=== PATIENT | male | born 1995 | race Caucasian/White ===

== ENCOUNTER 2024-10-18 10:58 | Emergency (ER) | payer MEDICAID, SELFPAY ==
--- NOTE | ~2024-10-18 | CT_ITS ---
CLINICAL INDICATION: Right upper quadrant pain COMPARISON: None. TECHNIQUE: Multiple contiguous axial images of the abdomen and pelvis were performed following the ad ministration of with 100 mL Omnipaque-350 intravenous contrast The dose-length product (DLP) was 514.31 mGy-cm. Automated exposure control and iterative reconstruction technique were employed. FINDINGS/OBSERVATIONS: Visualized lower thorax: The bilateral lung bases are clear. The heart is of normal size, without pericardial effusion. Small hiatal hernia is present. Liver: The liver enhances homogeneously and is not enlarged measuring 18 cm in longitudinal dimension. Gallbladder and biliary system: The gallbladder is only minimally distended, and otherwise unremarkable. Pancreas: The pancreas enhances homogeneously without ductal dilatation. Spleen: The spleen enhances homogeneously and is not enlarged measuring 8 cm in longitudinal dimension. Kidneys: The bilateral kidneys enhance symmetrically without hydronephrosis or renal calculi. Adrenal glands: Unremarkable. Gastrointestinal tract: End colostomy within the left lower quadrant with a Garzon's pouch in the pelvis. Appendix: The air-filled appendix is of normal caliber (axial series, images 117 through 136). Vasculature: Unremarkable. Lymph nodes: No pathologically enlarged or morphologically suspicious lymph nodes within the retroperitoneum or at the root of the mesentery. Pelvic structures: The bladder is distended, and otherwise unremarkable. The prostate gland is not enlarged. Body wall and musculoskeletal: Small fat-containing umbilical hernia. No significant degenerative disease within the lower thoracic or lumbosacral spine. IMPRESSION: No acute intra-abdominal pathology, as detailed above. Reviewed, dictated and finalized at location A. YSIS DIRECTOR
--- NOTE | ~2024-10-18 | XR_ITS ---
EXAMINATION: XR chest 1V portable Exam Date/Time: 10/18/2024 14:45 SHANK SKINNER HISTORY: RIGHT UPPER QUADRANT PAIN Comparison: None. RESULT: Lines, tubes, and devices: None. Lungs and pleura: Clear. Cardiomediastinal silhouette: Normal. Other: No acute osseous or upper abdominal finding. IMPRESSION: No acute cardiopulmonary process. Reviewed, dictated and finalized at location K. K SKINNER
[2024-10-18 11:06] VITALS: BP 130/96; PULSE 100; RESP 16; TEMP 36.6; O2SAT 100
--- NOTE | 2024-10-18 14:17 | ED_ITS ---
HPI - Abdominal Pain General Chief Complaint: Abdominal Pain Stated Complaint: abd pain Time Seen by Provider: 10/18/24 14:06 Source: patient Mode of arrival: ambulatory Related Data Allergies Allergy/AdvReac Type Severity Reaction Status Date / Time No Known Allergies Allergy Verified 10/18/24 10:59 Course Vital Signs Vital signs: Vital Signs Temperature 36.6 C 10/18/24 11:06 Pulse Rate 100 10/18/24 11:06 Respiratory Rate 16 10/18/24 11:06 Blood Pressure 130/96 H 10/18/24 11:06 Pulse Oximetry 100 10/18/24 11:06 Oxygen Delivery Room Air 10/18/24 11:06 Temperature 36.6 C 10/18/24 11:06 Pulse Rate 80 10/18/24 16:10 Respiratory Rate 16 10/18/24 16:10 Blood Pressure 134/88 10/18/24 16:10 Pulse Oximetry 98 10/18/24 16:10 Oxygen Delivery Room Air 10/18/24 11:06 MDM - Abdominal Pain MDM Narrative Medical decision making narrative: PATIENT CAME WITH RIGHT UPPER QUADRANT PAIN VITAL SIGNS ARE STABLE PHYSICAL EXAMINATION CONSISTENT WITH MILD DIFFUSE UPPER ABDOMINAL TENDERNESS, COLOSTOMY BAG IN PLACE DIFFERENTIAL DIAGNOSIS INCLUDE PANCREATITIS, DIVERTICULITIS, CONSTIPATION, CHOLECYSTITIS, APPENDICITIS BLOOD WORKUP TODAY INCLUDES CBC, CMP, LIPASE SHOWED NO ACUTE ABNORMALITIES URINALYSIS SHOWED NO ACUTE ABNORMALITIES PATIENT TESTED NEGATIVE FOR INFLUENZA, RSV AND COVID CT ABDOMEN AND PELVIS WITH IV CONTRAST SHOWED NO ACUTE ABNORMALITY TO EXPLAIN PATIENT CONDITION CHEST X-RAY SHOWED NO ACUTE ABNORMALITIES ABDOMINAL PAIN OF UNKNOWN ETIOLOGY IS MY CONCERN. DISCHARGED ON BENTYL AND TYLENOL NEEDED Differential Diagnosis Differential diagnosis: Likely other ( ABOVE) Lab Data Attestation: I reviewed the patient's lab results. 10/18/24 14:44 10/18/24 15:00 Labs: Lab Results 10/18/24 10/18/24 10/18/24 Range/Units 14:44 14:47 15:00 WBC 6.3 (4.5-10.0) K/mm3 RBC 5.33 (4.6-6.20) M/mm3 Hgb 15.6 (14.0-18.0) g/dL Hct 46.0 (42.0-52.0) % MCV 86.3 (80-100) fl MCH 29.3 (26-34) pg MCHC 33.9 (32-36) g/dl RDW 11.8 (11.5-14.5) % Plt Count 241 (150-375) k/mm3 MPV 9.1 (7.4-10.4) fl Immature Gran % (Auto) 0.2 (0-0.5) % Neut % (Auto) 53.7 (45.5-73.1) % Lymph % (Auto) 34.9 (18.3-44.2) % Bond % (Auto) 7.6 (2.6-8.5) % Eos % (Auto) 2.8 (0-4.4) % Baso % (Auto) 0.8 (0.2-1.2) % Lymph # (Auto) 2.21 (0.9-3.2) K/mm3 Bond # (Auto) 0.5 (0.1-0.6) K/mm3 Eos # (Auto) 0.2 (0-0.3) K/mm3 Baso # (Auto) 0.1 (0.0-0.1) K/mm3 Abs Immat Gran (auto) 0.01 (0.00-0.031) K/mm3 Absolute Neuts (auto) 3.4 (1.3-6.7) K/mm3 Absolute Nucleated RBC 0.000 (0.0-0.012) K/mm3 Nucleated RBC % 0.0 (0.0-0.2) % Sodium 140 (137-145) mmol/L Potassium 3.8 (3.4-5.0) mmol/L Chloride 99 (98-107) mmol/L Carbon Dioxide 30 (22-30) mmol/L Anion Gap 11 (4-12) mmol/L BUN 13 (9-20) mg/dL Creatinine 0.87 1.10 (0.7-1.3) mg/dL Estim Creat Clear Calc 123 98 ml/min Estimated GFR > 60 > 60 (59 - ) Glucose 90 (65-110) mg/dL Calcium 9.7 (8.4-10.2) mg/dL Total Bilirubin 0.9 (0.2-1.3) mg/dL AST 35 (17-59) U/L ALT 32 (6-50) U/L Alkaline Phosphatase 63 (38-126) U/L Total Protein 9.0 H (6.3-8.2) g/dL Albumin 5.2 H (3.5-5.1) g/dL Lipase 276 (23-300) U/L Urine Color (Yellow) Urine Appearance (Clear) Urine pH (5.0-9.0) Ur Specific [place] (1.001-1.035) Urine Protein (Negative) mg/dL Urine Glucose (UA) (Negative) mg/dL Urine Ketones (Negative) mg/dL Ur Blood (Man) (Negative) Urine Nitrate (Negative) Urine Bilirubin (Negative) Urine Urobilinogen (<2.0) mg/dL Leukocyte Esterase Rfl (Negative) JULIANNE/UL Influenza A (RT-PCR) Negative (Negative) Influenza B (RT-PCR) Negative (Negative) RSV (RT-PCR) Negative (Negative) SARS-CoV-2 RNA (RT-PCR) Negative (Negative) 10/18/24 Range/Units 15:40 WBC (4.5-10.0) K/mm3 RBC (4.6-6.20) M/mm3 Hgb (14.0-18.0) g/dL Hct (42.0-52.0) % MCV (80-100) fl MCH (26-34) pg MCHC (32-36) g/dl RDW (11.5-14.5) % Plt Count (150-375) k/mm3 MPV (7.4-10.4) fl Immature Gran % (Auto) (0-0.5) % Neut % (Auto) (45.5-73.1) % Lymph % (Auto) (18.3-44.2) % Bond % (Auto) (2.6-8.5) % Eos % (Auto) (0-4.4) % Baso % (Auto) (0.2-1.2) % Lymph # (Auto) (0.9-3.2) K/mm3 Bond # (Auto) (0.1-0.6) K/mm3 Eos # (Auto) (0-0.3) K/mm3 Baso # (Auto) (0.0-0.1) K/mm3 Abs Immat Gran (auto) (0.00-0.031) K/mm3 Absolute Neuts (auto) (1.3-6.7) K/mm3 Absolute Nucleated RBC (0.0-0.012) K/mm3 Nucleated RBC % (0.0-0.2) % Sodium (137-145) mmol/L Potassium (3.4-5.0) mmol/L Chloride (98-107) mmol/L Carbon Dioxide (22-30) mmol/L Anion Gap (4-12) mmol/L BUN (9-20) mg/dL Creatinine (0.7-1.3) mg/dL Estim Creat Clear Calc ml/min Estimated GFR (59 - ) Glucose (65-110) mg/dL Calcium (8.4-10.2) mg/dL Total Bilirubin (0.2-1.3) mg/dL AST (17-59) U/L ALT (6-50) U/L Alkaline Phosphatase (38-126) U/L Total Protein (6.3-8.2) g/dL Albumin (3.5-5.1) g/dL Lipase (23-300) U/L Urine Color Yellow (Yellow) Urine Appearance Clear (Clear) Urine pH 5.5 (5.0-9.0) Ur Specific [place] 1.039 H (1.001-1.035) Urine Protein Negative (Negative) mg/dL Urine Glucose (UA) Negative (Negative) mg/dL Urine Ketones Negative (Negative) mg/dL Ur Blood (Man) Negative (Negative) Urine Nitrate Negative (Negative) Urine Bilirubin Negative (Negative) Urine Urobilinogen 0.2 (<2.0) mg/dL Leukocyte Esterase Rfl Negative (Negative) JULIANNE/UL Influenza A (RT-PCR) (Negative) Influenza B (RT-PCR) (Negative) RSV (RT-PCR) (Negative) SARS-CoV-2 RNA (RT-PCR) (Negative) Imaging Data Radiologist's impression: ITS Impressions Chest X-Ray 10/18/24 15:00 IMPRESSION: No acute cardiopulmonary process. Abdomen/Pelvis CT 10/18/24 15:04 IMPRESSION: No acute intra-abdominal pathology, as detailed above. Critical Care Time Critical Care Time Critical Care Time: No Discharge Plan Discharge Clinical Impression: Abdominal pain Patient Disposition: Home, Self-Care Condition: Stable Instructions: Abdominal Pain (ED) Additional Instructions: RETURN IF SYMPTOMS ARE WORSENING , CALL YOUR FAMILY PHYSICIAN FOR APPOINTMENT, TAKE TYLENOL NEEDED FOR ACHES AND PAIN, CONTINUE HOME MEDICATIONS. Patient Language: [place] Prescriptions: New dicyclomine 20 mg tablet 20 mg PO QID Qty: 20 0RF Follow-up/Referrals: PHYSICIAN,FIXED CAPITAL CLERK [Non-Staff] - Elliot Mason MD [Physician] - 10/21/24
[2024-10-18] MEDS: SODIUM CHLORIDE 0.9% IV 1,000 ML 999 ML IV CONT (14:51)
[2024-10-18] MEDS: ONDANSETRON INJ 4 MG/2 ML VIAL IV PUSH (14:51)
[2024-10-18 14:53] LABS: Basophils Absolute Auto 0.1 K/mm3 (0.0-0.1); Basophils Percent Auto 0.8 % (0.2-1.2); Eosinophils Absolute Auto 0.2 K/mm3 (0-0.3); Eosinophils Percent Auto 2.8 % (0-4.4); Hemoglobin 15.6 g/dL (14.0-18.0); Immature Granulocyte Absolute 0.01 K/mm3 (0.00-0.031); Immature Granulocyte Percent A 0.2 % (0-0.5); Lymphocytes Absolute Auto 2.21 K/mm3 (0.9-3.2); Lymphocytes Percent Auto 34.9 % (18.3-44.2); Mean Corpuscular HGB Conc 33.9 g/dl (32-36); Mean Corpuscular Hemoglobin 29.3 pg (26-34); Mean Corpuscular Volume 86.3 fl (80-100); Mean Platelet Volume 9.1 fl (7.4-10.4); Monocytes Absolute Auto 0.5 K/mm3 (0.1-0.6); Monocytes Percent Auto 7.6 % (2.6-8.5); Neutrophils Absolute Auto 3.4 K/mm3 (1.3-6.7); Neutrophils Percent Auto 53.7 % (45.5-73.1); Platelet Count Result 241 k/mm3 (150-375); Red Blood Count 5.33 M/mm3 (4.6-6.20); Red Cell Distribution Width 11.8 % (11.5-14.5); White Blood Count 6.3 K/mm3 (4.5-10.0)
[2024-10-18] MEDS: HYDROmorphone HCL INJ (*CRX) 1 MG/ML SYR 0.5 MG IV PUSH (14:53)
[2024-10-18 15:01] LABS: Estimated CRCL calculation 98 ml/min; Estimated Glomerular Filt Rate > 60
[2024-10-18 15:06] LABS: Alanine Aminotransferase 32 U/L (6-50); Albumin Level 5.2 g/dL (3.5-5.1); Alkaline Phosphatase 63 U/L (38-126); Anion Gap 11 mmol/L (4-12); Aspartate Amino Transferase 35 U/L (17-59); Bilirubin,Total 0.9 mg/dL (0.2-1.3); Blood Urea Nitrogen 13 mg/dL (9-20); Calcium 9.7 mg/dL (8.4-10.2); Carbon Dioxide 30 mmol/L (22-30); Chloride 99 mmol/L (98-107); Estimated CRCL calculation 123 ml/min; Estimated Glomerular Filt Rate > 60; Glucose 90 mg/dL (65-110); Lipase 276 U/L (23-300); Potassium 3.8 mmol/L (3.4-5.0); Sodium 140 mmol/L (137-145)
[2024-10-18 15:30] LABS: Influenza A QL RT-PCR Negative (Negative); Influenza B QL RT-PCR Negative (Negative); RSV RNA, RT-PCR Negative (Negative); SARS-CoV-2 RNA PCR Negative (Negative)
[2024-10-18 15:49] LABS: Add Urine Microscopic? NO; Appearance Urine Clear (Clear); Bilirubin Urine Negative (Negative); Blood Urine Negative (Negative); Color Urine Yellow (Yellow); Glucose Urine UA Negative (Negative); Ketones Urine Negative (Negative); Leukocyte Esterase Ur Negative LEU/UL (Negative); Nitrate Urine Negative (Negative); Protein Urine Negative (Negative); Specific Grav Ur 1.039 (1.001-1.035); Urobilinogen Urine 0.2 mg/dL (<2.0); pH Urine 5.5 (5.0-9.0)
[2024-10-18 16:10] VITALS: BP 134/88; PULSE 80; RESP 16; O2SAT 98
--- OUTSIDE RECORDS SUMMARY | 2024-10-18 17:10 | XMS_ITS | Referral Summary ---
Author Organization [facility] madhavi Address [address] [place] [address] Care Team Providers Care Scientific Programmer Analyst Name Role Phone Carmina Loja MD Primary Care Provid er Encounters Date Type Department Care Team Description 10/01/2024 1:02 AM SLOPE TENDER - 10/01/2024 4:24 AM [facility] Emergency [facility] Emergency Department [address], [place] [id number] Andrés Wilde MD Abdominal pain (Primary Dx); Hyperkalemia Discharge Disposition: Discharge to home or self care from Last 3 Months Allergies Active Allergy Reactions Criticality Noted Date Comments Oseltamivir Other (See comments) Low 10/25/2023 jaundice Medications cetirizine (ZyrTEC) 10 mg tablet Take 1 tablet (10 mg total) by mouth daily as needed for allergies 30 tablet 10/20/19 24 Active spironolactone (ALDACTONE) 100 mg tablet Take 1 tablet (100 mg total) by mouth daily 30 tablet 11/12/19 24 Active Additional Information Patient not taking.Reported on 04/18/2024 thiamine (VITAMIN B1) 100 mg tablet Take 1 tablet (100 mg total) by mouth daily 30 tablet 11/12/19 24 Active folic acid (FOLVITE) 1 mg tablet Take 1 tablet (1 mg total) by mouth daily 30 tablet 11/12/19 24 Active Additional Information Patient not taking.Reported on 04/18/2024 cholestyramine-asp artame (QUESTRAN LIGHT) 4 gram powder in packet Take 1 packet by mouth air technician before breakfast 30 packet 11/12/19 24 Active lidocaine (ASPERCREME) 4 % adhesive patch,medicated Place 2 patches on the skin daily 30 patch 11/12/19 24 Active oxyCODONE (ROXICODONE) 5 mg immediate release tabletIndications: Pain Take 1 tablet (5 mg total) by mouth every 4 (four) hours as needed for pain 5 tablet 11/12/19 24 Active Additional Information Patient not taking.Reported on 01/20/2024 lactulose solution 10 gram/15mL Take 15 mL (10 g total) by mouth daily as needed (encephalopathy ) 450 mL 12/08/19 24 Active cholecalciferol (VITAMIN D-3) 50,000 unit capsuleIndications :Vitamin D Deficiency Take 1 capsule (50,000 Units total) by mouth once a week 4 capsule 1 12/18/19 24 Active gabapentin (NEURONTIN) 100 mg capsuleIndications :Neuropathic Pain Take 2 capsules (200 mg total) by mouth 3 (three) times a day 270 capsule 3 01/20/20 24 Active QUEtiapine (SEROquel) 25 mg tabletIndications: Depression Treatment Adjunct Take 6 tablets (150 mg total) by mouth nightly 90 tablet 3 01/20/20 24 Active furosemide (LASIX) 20 mg tabletIndications: Alcoholic hepatitis with ascites Take 1 tablet (20 mg total) by mouth daily 90 tablet 3 01/20/20 24 025 Active omeprazole (PriLOSEC) 40 mg capsuleIndications :Treatment of Non-Bleeding Gastric Disorder Take 1 capsule (40 mg total) by mouth daily 90 capsule 3 04/18/20 24 Active hydrOXYzine (ATARAX) 25 mg tabletIndications: Anxiety TAKE 1 TABLET BY MOUTH 4 TIMES DAILY NEEDED FOR ITCHING OR ANXIETY 90 tablet 05/10/20 24 Active ondansetron ODT (ZOFRAN-ODT) 4 mg disintegrating tablet Take 1 tablet (4 mg total) by mouth every 8 (eight) hours as needed for nausea or vomiting 20 tablet 10/01/19 25 Active Active Problems Problem Noted Date Diagnosed Date Episode of recurrent major depressive disorder 0 02/03/2024 Assessment & Plan (02/03/2024 9:34 PM CDT): - chronic, stable - continue Seroquel 150 mg nightly Anxiety 02/03/2024 Assessment & Plan (02/03/2024 9:35 PM CDT): - continue Seroquel - may take hydroxyzine p.r.n. Pain associated with wound 12/25/2023 Assessment & Plan (02/03/2024 9:33 PM CDT): - has been referred to pain management - continue gabapentin 200 mg t.i.d. Assessment & Plan (12/25/2023 8:25 PM CDT): - on methocarbamol 1000 mg every 6 hours p.r.n., reports he is almost out of oxycodone - and gabapentin taper dose up to 100 mg b.i.d. and 200 mg at bedtime - consider pain management referral, if necessary Anemia 12/04/2023 Assessment & Plan (12/08/2023 10:44 AM CDT): 12/03 Hgb 7.3-> 1u PRBC, post CBC pending 12/07 remains stable Hgb 9.3 Wound dehiscence, surgical, sequela 12/02/2023 Assessment & Plan (02/03/2024 9:32 PM CDT): - improving, continue [facility] and surgical - continues on wet-to-dry Vashe dressings Assessment & Plan (12/25/2023 8:22 PM CDT): - contacted wound care center at [facility]- appointment scheduled for Thursday12/21/2023 - continue wet-to-dry Vashe dressings until wound center evaluation - sutures from prior drain sites removed today - notify office if develops fevers, chills, foul odor or purulent drainage from wounds - repeat CT scan abd/pelvis scheduled 12/24/2023 - surgical follow-up on 01/20/2024 Assessment & Plan (12/03/2023 9:00 AM CDT): SEE SIGMOID DIVERTICULITIS AND ABDOMINAL WALL HEMATOMA for prior management 12/01 Notable bowel on inferior aspect of midline wound; LONA drain tubing remains visible from superior aspect. Plan for urgent OR today for abdominal closure 12/02 POD1 from abdominal closure; fascial sutures in place, WTD packing > CONSIDER RESOLVED, SEE SIGMOID DIVERTICULITIS for further management Intra-abdominal fluid collection 11/30/2023 Assessment & Plan (12/07/2023 12:02 PM CDT): 11/[address]: New small irregularly-shaped rim-enhancing collection anterior to the rectosigmoid pouch 11/29 consulted IR, undrainable, CTM, started ertapenem; Repeat CT prior to follow up appointment to re- evaluate 12/01 cont ertapenem while inpatient 12/02-12/04 WBC remains stable, continue Ertapenem 12/05 transitioned to Cipro/ Flagyl x10 days- until 12/15- prophylactic SBP S/P colostomy (CMS/HCC) 11/29/2023 Assessment & Plan (12/09/2023 1:09 PM CDT): Per Hepatology titrate Lactulose to 5-6 Bms daily/ 500-800 mL ostomy output per day 11/27 Ostomy output 875 mL, continue Lactulose 10g Q8 (titrate 500-800mL/day) 11/28 Ostomy output 1.9L/24h, decrease Lactulose to Q12 dosing 11/29 Ostomy output 1.2L/24h, continue Lactulose Q12 dosing, will readjust tomorrow if output remains greater than 1L 11/30 Ostomy 1025ml/24h, no changes in lactulose dosing 12/01 Ostomy 400cc/24h, no changes in lactulose 12/02 Thicker ostomy output; poor output documentation, adding pericolace, continue lactulose 12/03 ostomy output 50mL/24h thickened brown stool 12/04 ostomy output 25 mL/24h 12/05 ostomy output 230 mL/24h, brown output 12/06 ostomy output 485 mL/24h, brown stool 12/07 ostomy 250 mL liquid brown stool 12/08 ostomy 100mL thick brown output Severe protein-calorie malnutrition (CMS/HCC) 03 / Assessment & Plan (12/25/2023 8:16 PM CDT): - to consume 100 g protein daily to assist with wound healing - consider adding Martin supplementation Assessment & Plan (12/09/2023 1:10 PM CDT): 4 Albumin 2.2 Prealbumin 5, tolerating PO diet 12/04 Albumin 2.6 Prealbumin 4 Hyperbilirubinemia 11/05/2023 Assessment & Plan (11/17/2023 9:52 PM CDT): See alcoholic hepatitis with ascites Transaminitis 10/26/2023 Assessment & Plan (02/03/2024 9:31 PM CDT): - associated with alcoholic cirrhosis - with hyperbilirubinemia- 1.6, AST 80, ALT 20 - EGD on 11/11 demonstrated LA grade D esophagitis and a 2 cm sliding hernia - follow-up with Gastroenterology - avoid hepatotoxic medications - on Questran 4 g daily - lactulose ordered p.r.n., not currently taking - GI evaluation pending, repeat CMP Assessment & Plan (12/25/2023 8:13 PM CDT): - associated with alcoholic cirrhosis - with hyperbilirubinemia- 1.6, AST 80, ALT 20 - EGD on 11/11 demonstrated LA grade D esophagitis and a 2 cm sliding hernia - follow-up with Gastroenterology - avoid hepatotoxic medications - on Questran 4 g daily - not currently taking lactulose Alcoholic hepatitis with ascites 10/25/2023 Assessment & Plan (02/03/2024 9:30 PM CDT): - patient has continued to from alcohol - referral to pending Assessment & Plan (12/25/2023 8:18 PM CDT): - plan as above - referral to GI - discussed referral to warm handoff program, however, patient states he has not had an alcoholic beverage since October 21 Assessment & Plan (12/09/2023 1:05 PM CDT): Reports drinking 10 shots/day regularly for the last 5 years or so. EGD on 11/11 demonstrated LA grade D esophagitis and a 2 cm sliding hernia. MELD 30. Not transplant candidate due to current alcohol use. Daily CMP, coags, transfuse products as needed for INR goal. KALEN as indicated GI hepatology following, recommends: - 2L free water restriction - holding off on steroids for now given recent diverticulitis - paracentesis for comfort, send fluid for cell count - in setting of perforation, ok to hold PO meds furosemide 40mg daily and spirolactone 100mg daily - albumin 25g Q8H to compensate for fluid losses from wound vac Will re-engage hepatology for possible TIPS following resolution of abdominal pathology - hepatology c/s: send drain fluid for cell count, not a txp candidate - 11/23: Tbili 7.0 (8.9), hepatology c/s: hold off on diuretics and steroids - 11/24: drain Cx negative, Tbili 5.5 - 11/25: LONA #2 removed -11/26 LONA #1 160 mL output/ 24 hr- ascites, change emptying frequency to Q8, re engaged Hepatology for possible TIPS consideration in the setting of improvement overall, started Lasix and Spironolactone -11/27 LONA #1 with 30 mL output/ 24 hrs - ascites, emptying frequency Q12, started daily PO Potassium -11/28 LONA#1 with 545 mL output/24 hrs- ascites, reinforced emptying schedule with nursing, continue schedule Potassium repletion -11/29 LONA #1with 360 mL output/ 24 hrs- ascites, sent fluid from LONA drain to rule out SBP, Ertapenem started, if ascites is negative for bacteria will transition to Augmentin x14 days at discharge, continue scheduled Lasix, Spironolactone and Potassium -11/30 LONA drain cx NGTD, continue ertapenem while inpatient. Continue lasix, spironolactone, K supplements, lactulose. To discuss liver transplant with Hepatology team -12/01 cont current regime; per hepatology can consider weaning lactulose pending ostomy output --- Approx 650cc ascites evacuated in OR, albumin x1 given post-op -12/02 LONA drains x2 total output 775cc/24h, albumin x1 ordered. Continue Q6H emptying schedule. Continue lasix, spironolactone, K supplement, lactulose -12/04 LONA drains x2 total output 300mL/24h, continue Lasix and Spironolactone,change LONA emptying conference, LONA#2- Q8, LONA#3- keep clamped -12/05 clamp both Jps, continue Lasix and Spironolactone, addition Lasix 20mg IV provided -12/06 removed LONA#3, continue Lasix and Spironolactone, Lona#2 200 mL/24h, but will likely remove this drain tomorrow -12/07 LONA#2 emptied overnight, continue Lasix and Spironolactone, serum K remains stable on schedule BID supplements, likely DC LONA#2 tomorrow -12/08 midline wound no extra drainage, LONA #2 removed, stitch and derma pitts applied Needs Hepatitis B vaccine prior to discharge Acute esophagitis 05/21/2021 Assessment & Plan (12/01/2023 12:59 PM CDT): -11/11 - EGD: LA Grade D esophagitis -Recs for BID PPI -Repeat EGD in 12 weeks -11/30 PPI switched to PO formulation Hiatal hernia 05/21/2021 Acute esophageal obstruction 05/19/2021 Resolved Problems Problem Noted Date Diagnosed Date Resolved Date 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 12/06/2023 12/25/2023 Assessment & Plan (12/06/2023 10:34 AM CDT): 11/28 + stool Sinus tachycardia 12/04/2023 12/25/2023 Assessment & Plan (12/09/2023 1:11 PM CDT): 12/03 noted tachycardia overnight, negative 3L: UOP 3.2L, LONA drains 300 mL/24 h total, provided 1L LR bolus, LED negative Hgb 7.3-> 1u PRBC: See Anemia, placed on Telemetry CTM 12/04 HR 110s overnight, UOP 1.9L, LONA drain output total 300mL/24h CTM 12/05 HR 90-110s 12/06 HR 100-110s 12/07 HR 90-100s 12/08 HR 106-113 Abdominal wall hematoma 11/30/2023 05/0 10/2023 Assessment & Plan (12/03/2023 9:00 AM CDT): 11/27-11/28 patient vomited and noted a gush from the upper aspect of his incision, CT shows abdominal wall hematoma, CTM 11/29 removed rebekah from the upper aspect of the incision noted fascial sutures at the base of the incision, wet to dry dressing changes to the site, now emptying LONA Q6 to reduce tension on the incision, photo loaded in EPIC 11/30 adaptic added to base of wound; dressing changes Q8H, abdominal binder ordered and patient educated to brace when coughing/sneezing SEE PERIOPERATIVE DEHISCENCE OF ABDOMINAL WOUND WITH EVISCERATION > CONSIDER RESOLVED Diuretic-induced hypokalemia 11/28/2023 12/25/2023 Assessment & Plan (12/08/2023 10:36 AM CDT): 11/27 started PO Lasix and Spironolactone yesterday, UOP 1.7L, noted serum K 3.3, provided 40 mEQ Potassium IV, and daily PO Potassium 40 mEQ 11/28 K 3.6, continue scheduled PO Potassium 11/29 K 3.6, continue PO Potassium 11/30 K 3.7, continue lasix and scheduled K supplement 40 mEq daily 12/01 K 3.4, add 2nd PM dose of K supplement 12/03 K 3.6, added 2nd PM dose of Potassium 40 mEq 12/04 K 2.9, added 80 mEq Potassium IV for repletion, changed Potassium 40 mEq BID (requesting liquid) 12/05 discussed to improtance of taking potassium supplements in the setting of scheduled and PRN Diurectics, K 4.1, continue scheduled PO 40 mEq BID 12/06 K 3.7, continue scheduled PO BID, CTM 12/07 K stable 3.9, continue current regimen Discharge planning issues 11/27/2023 Assessment & Plan (12/09/2023 1:09 PM CDT): 11/26 transferred from SICU to the floor 11/27 started diuretics and Electrolyte repletion, LONA drain Q12 emptying, ostomy teaching 11/28 CT A/P 11/29 started IV Ertapenem, send ascites for culture 11/30 midline hematoma s/p staple removal, on watch for evisceration 12/01 urgent OR today for abdominal closure 12/03 DROP HAMMER SET UP OPERATOR for pain, will transition to PO when tolerating diet 12/04-12/06 clamp trials/schedule with Jps and local wound care 12/08 last LONA removed, plan for discharge tomorrow if midline wound remains intact Sigmoid diverticulitis 11/05/202312/24 Assessment & Plan (12/09/2023 1:11 PM CDT): First diagnosed at end of September, was uncomplicated then so treated with abx (Augmentin). Admitted to [facility] 10/24-11/01 for hepatitis with ascites. CT scan 10/25 noted microperforation.Treated with IV zoysn. Re-presented to [place] ED on 11/04 11/04: admitted to [facility] primary 11/11: underwent EGD, after which developed worsening abd pain with KUB showing free air. Abx restarted 11/12: ACCS consulted. NPO, IV Abx 11/15: CT with IV contrast showing worsening ascites and peritonitis c/f sigmoid perforation. Worsening encephalopathy 11/15-: OR (Kopar) sigmoid colectomy, retroperitoneal bleeding packed, discontinuity, Abthera. Plan to RTOR in 24-48h 11/17: OR (Kopar) extended L hemicolectomy, rectosigmoid resection, repacked, Abthera. 4U FFP, 6U pRBC during case. 11/19: OR ([facility]) Re exploratory laparotomy, creation of end transverse colostomy, complex abdominal closure (incision measuring 32 cm) 11/20: Keep NGT to LIS. LONA to self suction empty q3h only. Replete output. Keep erta for at least 4 more days and monitor WBC. Okay to extubate from ACCS perspective. Please re-engage GI hepatology 11/21: TPN, Trickle tube feeds until ROBF; empty LONA Q4Hr 11/22: lactulose started, not a candidate for an epidural by PM d/t INR 1.2, drains emptying q4h 11/23: colostomy output 875 (250), TFs increasing from trickle to goal rate, WBC 20.4 (26.1) 11/24: ok to TTOU, d/c TPN, continue TFs 11/25: CHUGG out to OU done, drains out 11/26 transferred to the floor, tolerating a PO diet Regular/ regular, removed NGT for supplemental feeds, Colostomy output 775 mL, empty LONA Q8, removed LONA #2 11/27 tolerating a PO diet, Colostomy with 875 mL brown stool, LONA #1 with ascites output 11/28 complains of nausea and vomited after medications, then had a gush of fluid from the midline, on exam noted pain on tenderness to the right lateral aspect of the midline incision, CT ordered, LONA remains ascites fluid emptying Q12 11/29 CT completed shows:small irregularly-shaped rim-enhancing collection anterior to the rectosigmoid pouch, a new right anterior abdominal wall hematoma.Trace pericholecystic, peripancreatic fluid and body wall edema is likely related to volume status. Reached out to IR to drain the fluid collection but is undrainable, started Ertapenem, will send fluid from LONA to evaluate for SBP- if negative will discharge on 2 weeks of Augmentin and follow up with a CT A/P. 11/30 Cont to tolerating PO diet, +stoma output. Adaptic added to base of wound, currently no concern for evisceration. NPO at midnight for repeat midline check tomorrow AM. 12/01 Urgent OR today. Previously tolerating PO, +stoma output 12/01 OR ([facility]fer) abdominal closure; ALMA, 2nd LONA drain placed (LLQ in pelvis), skin open 12/02 POD1 from abdominal closure; fascial sutures in place, pain uncontrolled, dPCA ordered. Continue WTD packing to midline. LONA drains x2 (removed previous LONA #1, now LONA#2&3)to Q6H emptying. Tolerating regular diet, +stoma output, thicker stool in appliance adding pericolace 12/03 POD2, midline incision pink with noted fascial sutures, photo loaded in EPIC, + stoma output, LONA x2- Q8 emptying, tolerating PO diet 12/04 POD3, midline dressing changed, fascial sutures int place, wound bed beefy red, photo loaded in EPIC, + stoma output, continue to empty LONA#2- Q8, LONA#3- keep clamped 12/05 POD4, midline incision open with red wound bed and fascial sutures visible, transitioned to PO Cipro/ Flagyl x14 days for total until 12/15, clamp both LONA drains 12/06 POD5, midline incision with red wound bed, fascial sutures present, some tannish drainage from the lower aspect of the incision, continue to clamp LONA#2, removed LONA #3, ostomy present with 485 mL brown stool 12/07 POD6, midline incision clean with fascial sutures present, continue local wound care, LONA #3- removed yesterday, JPx2 serous output- CLAMPED, continue abx until 12/15 (10 days total), ostomy 250 mL liquid brown stool 12/08 POD7 midline incision with fascial sutures noted, dressing moist, LONA #2 removed SEE HEMATOMA AND INTRA ABDOMINAL FLUID COLLECTION AND PERIOPERATIVE DEHISCENCE OF ABDOMINAL WOUND WITH EVISCERATION Cultures 11/05 RVP negative 11/05 BCx negative 09/25 11/13 RVP negative 11/16 OR peritoneal fluid: negative 11/29 Ascites (LONA drain) NGTD Abx Augmentin 10/19-10/24, 11/01 Zosyn 10/24-11/01, 11/12- 11/16 Micafungin: 11/16-11/17 Ertapenem: 11/12, 11/16-11/23, 11/29- Discharge on total 10 days of abx- Ciprofloxacin and Flagyl (12/05-12/15) Pathology 11/16 A. Large intestine, sigmoid colon, resection - Segment of colon with mild diverticulitis and associated pericolonic abscess and fibrosis - Serositis and serosal adhesions - Margins viable 11/17 A. Distal transverse and descending colon and omentum, extended left hemicolectomy and omentectomy: - Necrotizing serositis involving segment of colon, colonic mesentery, and omentum. B. Colon, rectosigmoid, resection: - Perforated diverticulitis with abscess, necrosis, foreign body giant cell reactions, acute and chronic inflammation, and fibrosis involving a segment of colon. 11/19 Colon, colostomy, resection: - Segment of colon with ischemic-type injury, necrosis, hemorrhage and serositis. - Ischemic-type injury involving the stapled end. Ischemic necrosis of small bowel (CMS/HCC) 11/05/2023 12/25/2023 Immunizations Immunization Administration Dates Next Due DTaP 03/16/2002, 9,1997,10/10,1997 DTaP, Unspecified 03/16/2002, 9,1997,10/10,1997 Hep B / HiB 03/16/1998,1997,1997 Hep B Vaccine 12/10/2023,(Deferred: Other - new order given),12/10/2023(Deferred: Other),12/01/2023(Deferred: Not available from balloon artist),11/12/2023 Hep B, Adolescent or Pediatric 03/16/1998,1996,1997 Hep B, Unspecified 03/16/1998,1997, 997 HiB 05/03/1999, 9,1997,12/07,1997,1997,1997 ,1997 Hib (HbOC) 05/03/1999, 8,1997,07/21 IPV 03/16/2002, 8,1997,07/21 Influenza, Unspecified 06/01/2023(Deferred: Leigh ent Refused) MMR 03/16/2002,06/01/1998 Meningococcal ACWY, Unspecified 02/01/2009 Meningococcal MCV4P (Menactra) 05/25/2015,2008 Meningococcal Polysaccharide (Menomune) 02/01/2009 Td, adsorbed 05/28/2021 Tdap 02/01/2009 Varicella 05/25/2015,05/03/1999 Social History Tobacco Use Types Packs/Day Years Used Date Smoking Tobacco: Former Cigarettes Smokeless Tobacco: Never Tobacco Cessation:Counseling Given: Not Answered Alcohol Use Standard Drinks/Week Comments Not Currently 0 (1 standard drink = 0.6 oz pure alcohol) pt did drink daily until october 23 [facility] Utilities Answer Date Recorded In the past 12 months has th e electric, gas, oil, or water company threatened to shut off services in your home? No 10/27/2023 Social Connection and Isolat ion Panel [NHANES] Answer Date Recorded In a typical week, how many times do you talk on the phone with family, friends, or neighbors? More than three times a week 11/06/2023 How often do you get togethe r with friends or relatives? More than three times a week 11/06/2023 How often do you attend chur ch or uatsdin services? Never 11/06/2023 Do you belong to any clubs o r organizations such as voodoo groups, unions, fraternal or athletic groups, or school groups? No 11/06/2023 How often do you attend meet ings of the clubs or organizations you belong to? Never 11/06/2023 Are you , , di vorced, , never , or living with a partner? Never 11/06/2023 AUDIT-C Answer Date Recorded Q1: How often do you have a drink containing alcohol? 4 or more times a week 11/16/2023 Q2: How many drinks containi ng alcohol do you have on a typical day when you are drinking? 10 or more Q3: How often do you have si x or more drinks on one occasion? Never 11/16/2023 Overall Financial Resource Strain (CARDIA) Answe r Date Recorded How hard is it for you to pa y for the very basics like food, housing, medical care, and heating? Not hard at all 11/06/2023 PHQ-2 Answer Date Recorded PHQ-2 Total Score (If total score is 3 or more points, staff should administer the PHQ-9) 1 11/06/2023 Hunger Vital Sign Answer Date Recorded Within the past 12 months, y ou worried that your food would run out before you got the money to buy more. Never true 11/06/19 24 Within the past 12 months, t he food you bought just didn't last and you didn't have money to get more. Never true 11/06/2023 PRAPARE - Transportation Answer Date Re corded In the past 12 months, has l ack of transportation kept you from medical appointments or from getting medications? No 10/22 In the past 12 months, has l ack of transportation kept you from meetings, work, or from getting things needed for daily living? No 11/06/2023 Housing Stability Vital Sign Answer Egorge e Recorded In the last 12 months, was t here a time when you were not able to pay the mortgage or rent on time? No 11/06/2023 In the last 12 months, how many places have you lived? 1 11/06/2023 In the last 12 months, was t here a time when you did not have a steady place to sleep or slept in a long-term (including now)? No 11/06/2023 Personal Safety Answer Date Recorded Have you ever been in or are you currently in a harmful physical or emotional relationship or is someone making you feel afraid or unsafe? Denies 09/30/2024 Sex and Gender Information Value Date Recorded Sex Assigned at Not on file Legal Sex Male 5:33 PM SLOPE TENDER Gender Identity Not on file Sexual Orientation Not on file Last Filed Vital Signs Vital Sign Reading Time Taken Comments Blood Pressure 129/84 09/30/2024 7:05 PM SLOPE TENDER Pulse 85 09/30/2024 7:05 PM SLOPE TENDER Temperature 36.2 C (97.2 F) 09/30/2024 7:04 PM SLOPE TENDER Respiratory Rate 18 09/30/2024 7:04 PM SLOPE TENDER Oxygen Saturation 100% 09/30/2024 7:05 PM SLOPE TENDER Inhaled Oxygen Concentration - - Weight 83.9 kg (185 lb) 09/30/2024 7:04 PM SLOPE TENDER Height 182.9 cm (6') 09/30/2024 7:04 PM SLOPE TENDER Body Mass Index 25.09 09/30/2024 7:04 PM SLOPE TENDER Plan of Treatment Not on file Procedures Procedure Name Priority Date/Time Associated Diagnosis Comments CT ABDOMEN PELVIS W CONTRAST ED 10/01/2024 1:34 AM SLOPE TENDER URINALYSIS AND REFLEX TO MICROSCOPIC AND CULTURE STAT 09/30/2024 9:06 PM SLOPE TENDER EGFR STAT 09/30/2024 8:26 PM SLOPE TENDER DIFFERENTIAL AUTO STAT 09/30/2024 8:2 6 PM SLOPE TENDER LIPASE STAT 09/30/2024 8:26 PM SLOPE TENDER COMPREHENSIVE METABOLIC PANEL STAT 09/30/2024 8:26 PM SLOPE TENDER CBC WITH AUTO DIFFERENTIAL STAT 09/30/2024 8:26 PM SLOPE TENDER HEPATITIS C RNA, QUANTITATIVE, PCR Routine 11/05/2023 8:57 PM CDT from Last 3 Months or Most Recently Relevant to Health Maintenance Results * CT Abdomen Pelvis W Contrast (10/01/2024 1:34 AM SLOPE TENDER) Anatomical Region Laterality Modality Body N/A Computed Tomogra phy 10/01/2024 1:37 AM SLOPE TENDER Narrative 10/01/2024 1:42 AM SLOPE TENDER EXAM DESCRIPTION: CT ABDOMEN PELVIS W CONTRAST REASON FOR STUDY: Abdominal pain, acute, nonlocalized, abd pain General abdominal pain since stopping a medication approximately 12 days ago. TECHNIQUE: CT scan of the abdomen and pelvis performed with intravenous and without oral contrast using helical scanning technique with dynamic intravenous contrast injection. Reconstructed coronal and sagittal MPR images reviewed. All images stored on PACS. Automated exposure control was used as a dose optimization technique for this examination. CONTRAST TYPE/DOSE: 100mL of IOVERSOL 350 MG IODINE/ML INTRAVENOUS SYRINGE injected via intravenous COMPARISON: CT of the abdomen and pelvis of December 24, 2023. FINDINGS: LOWER CHEST: The lung bases are clear. LIVER: The liver is normal in attenuation without focal lesion. GALLBLADDER: No stones identified. Normal wall. No evidence of pericholecystic fluid. BILE DUCTS: No intrahepatic or extrahepatic ductal dilatation. PANCREAS: Normal. SPLEEN: Normal size. No focal lesions. ADRENALS: Normal. KIDNEYS/URINARY TRACT: No identified significant cystic or solid masses. No visualized stones. No hydronephrosis or hydroureter. Urinary bladder is unremarkable. VASCULATURE: No acute abnormality seen. No abdominal aortic aneurysm. GI: The stomach appears normal. There is no significant small bowel dilation or visible thickening. 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 Remaining colon appears unremarkable. The appendix is normal. PERITONEUM/MESENTERY: No ascites or free air. There are multiple tiny fat containing supraumbilical ventral hernias, unchanged. LYMPH NODES: There are no enlarged lymph nodes seen by CT size criteria. REPRODUCTIVE: The prostate and seminal vesicles are unremarkable. MUSCULOSKELETAL: No significant abnormality. OTHER: No other abnormality. IMPRESSION: No acute finding in the abdomen or pelvis. 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 Multiple tiny fat containing supraumbilical ventral hernias, unchanged. THIS IS AN ELECTRONICALLY VERIFIED FINAL REPORT 10/01/2024 1:42 AM - Electronically signed by Pilar Jimenez M.D. SN: Report ID: [id number] Reading Location: [id number] Procedure Note Pilar Jimenez MD - 10/01/2024 EXAM DESCRIPTION: CT ABDOMEN PELVIS W CONTRAST REASON FOR STUDY: Abdominal pain, acute, nonlocalized, abd pain General abdominal pain since stopping a medication approximately 12 daysago. TECHNIQUE: CT scan of the abdomen and pelvis performed with intravenousand without oral contrast using helical scanning technique with dynamic intravenous contrast injection. Reconstructed coronal and sagittal MPRimages reviewed. All images stored on PACS. Automated exposure control was usedas a dose optimization technique for this examination. CONTRAST TYPE/DOSE: 100mL of IOVERSOL 350 MG IODINE/ML INTRAVENOUSSYRINGE injected via intravenous COMPARISON: CT of the abdomen and pelvis of December 24, 2023. FINDINGS: LOWER CHEST: The lung bases are clear. LIVER: The liver is normal in attenuation without focal lesion. GALLBLADDER: No stones identified. Normal wall. No evidence of pericholecystic fluid. BILE DUCTS: No intrahepatic or extrahepatic ductal dilatation. PANCREAS: Normal. SPLEEN: Normal size. No focal lesions. ADRENALS: Normal. KIDNEYS/URINARY TRACT: No identified significant cystic or solid masses.No visualized stones. No hydronephrosis or hydroureter. Urinary bladder is unremarkable. VASCULATURE: No acute abnormality seen. No abdominal aortic aneurysm. GI: The stomach appears normal. There is no significant small bowel dilation or visible thickening. 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 Remaining colon appears unremarkable. The appendix is normal. PERITONEUM/MESENTERY: No ascites or free air. There are multiple tinyfat containing supraumbilical ventral hernias, unchanged. LYMPH NODES: There are no enlarged lymph nodes seen by CT size criteria. REPRODUCTIVE: The prostate and seminal vesicles are unremarkable. MUSCULOSKELETAL: No significant abnormality. OTHER: No other abnormality. IMPRESSION: No acute finding in the abdomen or pelvis. 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 Multiple tiny fat containing supraumbilical ventral hernias, unchanged. THIS IS AN ELECTRONICALLY VERIFIED FINAL REPORT 10/01/2024 1:42 AM - Electronically signed by Pilar Jimenez M.D. SN: SN Report ID: [id number] Reading Location: [place] [address] us Andrés Wilde MD IMG CT PROCEDURES Final Resul t * Urinalysis reflex to microscopic and culture Urine (09/30/2024 9:06 PM SLOPE TENDER) Color, ur Straw Yellow Clarity, ur Clear Clear [facility] ([place]) Specific gravity, ur 1.006 1.003 - 1.030 [facility] ([place]) pH, urine 5.5 [facility] ([place]) Comment: Interpretive Data U rine pH is affected by diet, medications, systemic acid-base disturbances, and renal tubular function. pH may affect urinary stone formation. For example, urine pH below 6.0 may help reduce the tendency for calcium phosphate stones and pH greater than 6.0 may reduce the tendency for uric acid stone formation. Source: [facility] Current Interpretive Data was last revised on 2017 Protein, ur ql Negative Negative [facility] ([place]) Glucose, ur ql Negative Negative [facility] ([place]) Ketones, ur Negative Negative [facility] ([place]) Bilirubin, ur Negative Negative [facility] ([place]) Blood, ur Negative Negative [facility] ([place]) Urobilinogen, ur <2.0 <2.0 mg/dL [facility] ([place]) Nitrite, ur Negative Negative [facility] ([place]) Leukocyte esterase, ur Negative Negative [facility] ([place]) UA reflex comment Reflex conditions for microscopic UA and culture not met. [facility] ([place]) Urine 09/30/2024 9:06 PM SLOPE TENDER 09/30/2024 9:10 PM SLOPE TENDER us Andrés Wilde MD LAB MICROBIOLOGY - GENERAL OR DERABLES Final Result Performing Organization Address City/[facility]/ZIP Co de Phone Number [facility]INO [facility] ([place]YS[place]) 1 [facility] [place] [address] * eGFR (09/30/2024 8:26 PM SLOPE TENDER) Pathologist [facility] [place] eGFR >90 >=60 mL/min/1. 73 m2 Comment: Interpretive Data Reference Interval Normal >/= 90 mL/min/1.73m2 Mildly decreased* 60 - 89 mL/min/1.73m2 Mildly to moderately decreased 45 - 59 mL/min/1.73m2 Moderately to severely decreased 30 - 44 mL/min/1.73m2 Severely decreased 15 - 29 mL/min/1.73m2 Kidney Failure < 15 mL/min/1.73m2 *Relative to young adult level Estimated glomerular filtration rate is determined by the 2020 CKD-EPI equation recommended by the National Kidney [employer] (A Unifying Approach to GFR Estimation: Recommendations of the NKF-ASK Task Force on Reassessing the Inclusion of Race in Diagnosing Kidney Disease, JASN 2020). The CKD-EPI equation should not be used for patients with unstable renal function and has not been validated in children and those over 70. Current interpretive data was last reviewed 2021. Blood 09/30/2024 8:26 PM SLOPE TENDER 09/30/2024 8:28 PM SLOPE TENDER us Andrés Wilde MD LAB BLOOD ORDERABLES Final Re sult [facility] ([place]) 1 [facility] Department [place] [address] * (ABNORMAL) Differential, auto (09/30/2024 8:26 PM SLOPE TENDER) Neutrophil abs 5.0 1.5 - 6.5 K/cumm Imm gran abs 0.0 0.0 - 0.1 K/cumm [facility] ([place]) Lymphocyte abs 3.1 0.8 - 3.3 K/cumm [facility] ([place]) Monocyte abs 0.9(H) 0.2 - 0.8 K/cumm [facility] ([place]) Eosinophil abs 0.3 0.0 - 0.5 K/cumm [facility] ([place]) Basophil abs 0.1 0.0 - 0.1 K/cumm [facility] ([place]) Neutrophil pct 53.5 % [facility] ([place]) Comment: Interpretive Data Percent cell count reference ranges are not reported, since discordance with absolute values may lead to misinterpretation of CBC data. Current Interpretive Data was last revised on 2017. Imm gran pct 0.2 % [facility] ([place]) Comment: Interpretive Data Percent cell count reference ranges are not reported, since discordance with absolute values may lead to misinterpretation of CBC data. Current Interpretive Data was last revised on 2017. Lymphocyte pct 32.8 % [facility] ([place]) Comment: Interpretive Data Percent cell count reference ranges are not reported, since discordance with absolute values may lead to misinterpretation of CBC data. Current Interpretive Data was last revised on 2017. Monocyte pct 9.7 % [facility] ([place]) Comment: Interpretive Data Percent cell count reference ranges are not reported, since discordance with absolute values may lead to misinterpretation of CBC data. Current Interpretive Data was last revised on 2017. Eosinophil pct 3.1 % [facility] ([place]) Comment: Interpretive Data Percent cell count reference ranges are not reported, since discordance with absolute values may lead to misinterpretation of CBC data. Current Interpretive Data was last revised on 2017. Basophil pct 0.7 % [facility] ([place]) Comment: Interpretive Data Percent cell count reference ranges are not reported, since discordance with absolute values may lead to misinterpretation of CBC data. Current Interpretive Data was last revised on 2017. Blood 09/30/2024 8:2 6 PM SLOPE TENDER 09/30/2024 8:28 PM SLOPE TENDER us Andrés Wilde MD LAB BLOOD ORDERABLES Final Re sult [facility] ([place]) 1 [facility] Department [place] [address] * CBC with auto differential (09/30/2024 8:26 PM SLOPE TENDER) WBC 9.4 3.8 - 9.9 K/cumm Hgb 16.1 13.0 - 17.5 g/dL [facility] ([place]) Hct 47.6 38.9 - 50.3 % [facility] ([place]) Plt 296 150 - 400 K/cumm [facility] ([place]) MPV 9.8 9.1 - 12.3 fL [facility] ([place]) RBC 5.47 4.30 - 5.80 M/cumm [facility] ([place]) MCV 87.0 81.3 - 96.4 fL [facility] ([place]) MCH 29.4 27.1 - 33.3 pg [facility] ([place]) MCHC 33.8 32.3 - 35.7 g/dL [facility] ([place]) RDW CV 11.9 11.1 - 14.9 % [facility] ([place]) RDW SD 38.2 35.7 - 48.1 fL [facility] ([place]) NRBC abs 0.00 0.00 - 0.01 K/cumm [facility] ([place]) Blood (Blood, Venous) 09/30/2024 8:26 PM SLOPE TENDER 09/30/2024 8:28 PM SLOPE TENDER us Andrés Wilde MD LAB BLOOD ORDERABLES Final Re sult [facility]INO [facility] ([place]) 1 [facility] [place] [address] * Lipase (09/30/2024 8:26 PM SLOPE TENDER) Lipase 72 10 - 99 Units/L Blood (Blood, Venous) 09/30/2024 8:26 PM SLOPE TENDER 09/30/2024 8:28 PM SLOPE TENDER us Andrés Wilde MD LAB BLOOD ORDERABLES Final Re sult [facility]INO [facility] ([place]) 1 [facility] Department [place] [address] * (ABNORMAL) Comprehensive metabolic panel (09/30/2024 8:26 PM SLOPE TENDER) Sodium 133(L) 135 - 145 mmol/L Potassium, pl 5.3(H) 3.3 - 4.9 mmol/L [facility] ([place]) Comment:Moderately Hemolyzed Specimen. Results may be affected. Chloride 94(L) 97 - 110 mmol/L [facility] ([place]) CO2 27 22 - 32 mmol/L [facility] ([place]) Anion gap 12 2 - 15 mmol/L [facility] ([place]) BUN 10 6 - 25 mg/dL [facility] ([place]) Creatinine 0.84 0.80 - 1.30 mg/dL [facility] ([place]) Glucose 96 70 - 199 mg/dL [facility] ([place]) Comment: Interpretive Data Fasting glucose >/= 126 mg/dl is diagnostic for diabetes. Fasting is defined as no caloric intake for at least 8 hours. Fasting glucose between 100 mg/dl to 125 mg/dl is diagnostic of prediabetes. In a patient with classic symptoms of hyperglycemia or hyperglycemic crisis, a random glucose >/= 200 mg/dl is diagnostic for diabetes. In the absence of unequivocal hyperglycemia, results should be confirmed by repeat testing. The classification and Diagnosis of Diabetes Diabetes Care 202; 46: S19-S40. Current interpretive data was last revised 2022. Calcium 9.9 8.5 - 10.3 mg/dL [facility] ([place]) Bilirubin, total 0.8 0.1 - 1.2 mg/dL [facility] ([place]) Protein, pl 8.2 6.5 - 8.5 g/dL [facility] ([place]) Albumin 5.1(H) 3.5 - 5.0 g/dL [facility] ([place]) Alk phos 80 40 - 130 Units/L [facility] ([place]) ALT 26 7 - 55 Units/L [facility] ([place]) Comment: Hemolysis present. Results may be affected. Moderately Hemolyzed Specimen AST 46 10 - 50 Units/L [facility] ([place]) Comment: Hemolysis present. Results may be affected. Moderately Hemolyzed Specimen Blood 09/30/2024 8:26 PM SLOPE TENDER 09/30/2024 8:28 PM SLOPE TENDER us Andrés Wilde MD LAB BLOOD ORDERABLES Final Re sult [facility] ([place]) 1 [facility] Department [place] [address] * Hepatitis C (HCV) RNA PCR, quantitative Blood (11/05/2023 8:57 PM CDT) [facility] HCV RNA result Not Detected [facility] Comment: The quantifiable range of this assay is 15 IU/mL to 100,000,000 IU/mL (1.18 log IU/mL to 8.00 log IU/mL). Testing was performed by the ROBERT[facility] [id number] HCV Test ([employer] Testing performed at [facility] Current Interpretive Data was last revised on 2021 Blood 11/05/2023 8:57 PM CDT 11/05/2023 9:38 PM CDT Katerina Rashid MD LAB MICROBIOLOGY - GENERAL ORDERABLES Final Result [facility] Department [place] [address] [facility] from Last 3 Months or Most Recently Relevant to Health Maintenance Insurance [facility] PL[facility] Advance Directives For more information, please contact: [phone] * Full Code (Latest Code Status on File) Date Activated Date Inactivated Comments 12/02/2023 12:20 PM 12/10/2023 6:24 PM * Full Code Date Activated Date Inactivated Comments 11/12/2023 9:15 AM 12/02/2023 12:20 PM * Full Code Date Activated Date Inactivated Comments 11/05/2023 4:23 PM 11/12/2023 9:15 AM * Full Code Date Activated Date Inactivated Comments 10/25/2023 7:37 AM 11/02/2023 9:19 PM Care Teams Scientific Programmer Analyst Relationship Specialty Start Date End Date Carmina Loja MD [address] [place] [address] [place] [address] PCP - General Family Medicine 10/01/24
--- OUTSIDE RECORDS SUMMARY | 2024-10-18 17:10 | XMS_ITS | Data Portability ---
Author Organization [facility] [place] M [facility] Address [address] [address] Care Team Providers Care Nailing Machine Feeder Name Role Phone CARMINA LAGUNAS Primary Care Provider Unavail able Assessment No assessment recorded. Plan of Treatment Reminders Order Date Submit Date Provider Last Modified By Organization Details Last Modified Time Details Appointments ANY 15 2024 10:15A M KULDIP SIM MD Not available Not available Not available JEREMY MIR NT 60 2024 08:00A Ricardo Zuniga NP Not available Not available Not available Lab CMP, serum or plasm a 2024 025 FELICIANO [facility], [address], [address], [place], [address], 10/12/2024 07:14:49 PT panel , coaradha morrison n, plate let poor plasm a 2024 025 [email or web address] [facility], [address], [address], [place], [address], 10/11/2024 12:22:58 HIV 1 + 2, meani ngful use set 2024 025 FELICIANO [facility], [address], [address], [place], [address], 10/12/2024 07:14:54 Hepat itis C IgG Ab, qual, serum 2024 025 FELICIANO [facility], [address], [address], [place], [address], 10/12/2024 07:14:52 HBsAg (hepa titis B surfa ce Ag), EIA, serum 2024 FELICIANO [facility], [address], [address], [place], [address], 10/12/2024 07:14:53 Referral gastr kinjal stack ist refer ral - liver disea se w/ colos sheron bag 2024 025 [facility] [place], [address] [facility], [address], [place], [address], 10/15/2024 21:16:[address] refer ral 2024 025 FELICIANO Pompa MD, [address], [facility] [address], [address], [place], [address], 10/13/2024 10:42:22 behav ioral healt h refer ral 2024 025 FELICIANO James (), [address], [place], [address], 10/11/2024 13:27:31 Procedures cerum en remov al using irrig ation (PROC ) - Proce dure docum ented . 2024 [email or web address] Not available 10/11/2024 12:22:58 Surgeries None recor ded. Imaging None recor ded. Medication Orders gabap entin 100 mg capsu le 2024 025 [facility], [address], [place], [address], 10/11/2024 12:41:48 dulox etine 30 mg capsu le,de layed relea se 2024 025 [facility], [address], [place], [address], 10/11/2024 16:14:50 Patient TargetsNo targets recorded. Patient Instructions Encounter Date Encounter Id Patient Instructions Last Modified By Organization Details Last Modified Time 10/11/2024 [id number] A healthy lifestyle: care instructions [email or web address] Not available 10/11/2024 12:22:58 I saw the patien t with the resident. 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 METAB OLIC PANEL (14) glucose 91 mg/dL 70-99 Not Available [facility] ([facility]) [address] [place], [address], 10/12/2024 07:14:49 10/11/19 25 10/12/2024 COMP. METAB OLIC PANEL (14) BUN 11 mg/dL 6-20 Not Available [facility] ([facility]) [address] [place], [address], 10/12/2024 07:14:49 10/11/19 25 10/12/2024 COMP. METAB OLIC PANEL (14) creatinine 0.99 mg/dL 0.76-1 .27 Not Available [facility] ([facility]) [address] [place], [address], 10/12/2024 07:14:49 10/11/19 25 10/12/2024 COMP. METAB OLIC PANEL (14) eGFR 107 mL/mi n/1.7 3 >59 Not Available [facility] ([facility]) [address] [place], [address], 10/12/2024 07:14:49 10/11/19 25 10/12/2024 COMP. METAB OLIC PANEL (14) BUN/creatini ne ratio 11 9-20 Not Available [facility] ([facility]) [address] [facility], [place], [address], 10/12/2024 07:14:49 10/11/19 25 10/12/2024 COMP. METAB OLIC PANEL (14) sodium 139 mmol/ L 134-14 4 Not Available [facility] ([facility]) [address] [facility], [place], [address], 10/12/2024 07:14:49 10/11/19 25 10/12/2024 COMP. METAB OLIC PANEL (14) potassium 5.0 mmol/ L 3.5-5. 2 Not Available [facility] ([facility]) [address] [facility], [place], [address], 10/12/2024 07:14:49 10/11/19 25 10/12/2024 COMP. METAB OLIC PANEL (14) chloride 99 mmol/ L 96-106 Not Available [facility] ([facility]) [address] [place], [address], 10/12/2024 07:14:49 10/11/19 25 10/12/2024 COMP. METAB OLIC PANEL (14) carbon dioxide, total 25 mmol/ L 20-29 Not Available [facility] ([facility]) [address] [place], [address], 10/12/2024 07:14:49 10/11/19 25 10/12/2024 COMP. METAB OLIC PANEL (14) calcium 10.4 mg/dL 8.7-10 .2 above high normal Not Available [facility] ([facility]) [address] [facility] [place], [address], 10/12/2024 07:14:49 10/11/19 25 10/12/2024 COMP. METAB OLIC PANEL (14) protein, total 7.7 g/dL 6.0-8. 5 Not Available [facility] ([facility]) [address] [facility] [place], [address], 10/12/2024 07:14:49 10/11/19 25 10/12/2024 COMP. METAB OLIC PANEL (14) albumin 4.8 g/dL 4.3-5. 2 Not Available [facility] ([facility]) [address] [facility] [place], [address], 10/12/2024 07:14:49 10/11/19 25 10/12/2024 COMP. METAB OLIC PANEL (14) globulin, total 2.9 g/dL 1.5-4. 5 Not Available [facility] ([facility]) [address] [facility] [place], [address], 10/12/2024 07:14:49 10/11/19 25 10/12/2024 COMP. METAB OLIC PANEL (14) bilirubin, total 0.6 mg/dL 0.0-1. 2 Not Available [facility] ([facility]) [address] [facility] [place], [address], 10/12/2024 07:14:49 10/11/19 25 10/12/2024 COMP. METAB OLIC PANEL (14) alkaline phosphatase 77 IU/L 44-121 Not Available [facility] [address] [facility] [place], [address], 10/12/2024 07:14:49 10/11/19 25 10/12/2024 COMP. METAB OLIC PANEL (14) AST (SGOT) 37 IU/L 0-40 Not Available [facility] ([facility]) [address] [facility], [place], [address], 10/12/2024 07:14:49 10/11/19 25 10/12/2024 COMP. METAB OLIC PANEL (14) ALT (SGPT) 34 IU/L 0-44 Not Available [facility] ([facility]) [address] [facility], [place], [address], 10/12/2024 07:14:49 10/11/19 25 10/12/2024 INTER PRETA TION: interpretati on: Commen t Not infec janette with HCV unles s early or acute infec tion is suspe cted (whic h may be delay ed in an immun ocomp romis ed indiv idual ), or other evide nce exist s to indic ate HCV infec tion. Not Available [facility] ([facility]) [address] [facility], [place], [address], 10/12/2024 07:14:51 10/11/19 25 10/12/2024 HCV ANTIB OBIE RFX TO QUANT PCR HCV Ab NON REACTI VE nonrea ctive Not Available [facility] ([facility]) [address] [place], [address], 10/12/2024 07:14:52 10/11/19 25 10/12/2024 HBSAG SCREE N HBsAg screen NEGATI VE negati ve Not Available [facility] ([facility]) [address] [place], [address], 10/12/2024 07:14:53 10/11/19 25 10/12/2024 HIV AB/P2 4 AG WITH REFLE X HIV Ab/P24 Ag screen NON REACTI VE nonrea ctive HIV-1 /HIV- 2 antib odies and HIV-1 p24 antig en were NOT detec janette. There is no labor atory evide nce of HIV infec tion. HIV Negat mary Not Available [facility] ([facility]) [address] [place], [address], 10/12/2024 07:14:54 Result Notes None recorded. Problems Name Problem SNOMED Code Status Onset Date Resolution Date Notes Provider Name and Address Organization Details Recorded Time Mixed anxiety and depressive disorder 408288183 Active 025 CARMINA BOO MD Attn: Jax campbell,[address] [facility], [place], [address], [facility] 5 12:56:01 Problem Notes None recorded. Procedures Surgical History Date Name Laterality Status Provider Name and Address Organization Details Recorded Time Cerumen Removal completed Magy Gomez [place] - [facility] 10/11/2024 12:01:05 Imaging Results None recorded. Procedure Notes None recorded. Medical Equipment None Reported. Medications Name Sig Start Date Stop Date Status Note LastModified by Organization Details LastModified Time quetiapine 25 mg tablet TAKE 6 TABLETS BY MOUTH NIGHTLY 10/11 completed Not Available Not Available Not Available furosemide 40 mg tablet TAKE 1 TABLET BY MOUTH ONCE DAILY 10/11 completed pt is not taking 10/11/24 Not Available Not Available Not Available cetirizine 10 mg tablet TAKE 1 TABLET BY MOUTH ONCE DAILY NEEDED FOR ALLERGIE S 10/11 completed pt is not taking 10/11/24 Not Available Not Available Not Available meloxicam 15 mg tablet TAKE 1 TABLET BY MOUTH ONCE DAILY 10/11 completed pt is not taking 10/11/24 Not Available Not Available Not Available omeprazole 40 mg capsule,de layed release TAKE 1 CAPSULE BY MOUTH ONCE DAILY active Not Available Not Available No t Available baclofen 20 mg tablet TAKE 1 TABLET BY MOUTH THREE TIMES DAILY NEEDED FOR PAIN 10/11 completed pt would like to stop taking this - hasn't been taking 10/11/24 Not Available Not Available Not Available ketorolac 10 mg tablet TAKE 1 TABLET BY MOUTH EVERY 6 HOURS NEEDED FOR PAIN 10/11 completed pt is not taking 10/11/24 Not Available Not Available Not Available lorazepam 0.5 mg tablet TAKE 1 TABLET BY MOUTH EVERY 6 HOURS NEEDED FOR SEIZURES (WITHDRA WAL SYMPTOMS , TREMULOU SNESS,FERNÁNDEZ LLUCINAT IONS) 10/11 completed pt is not taking 10/11/24 Not Available Not Available Not Available oseltamivi r 75 mg capsule TAKE 1 CAPSULE BY MOUTH TWICE DAILY FOR 5 DAYS 10/11 completed pt is not taking 10/11/24 Not Available Not Available Not Available lidocaine 5 % topical patch USE 1 PATCH EXTERNAL LY ONCE DAILY NEEDED FOR PAIN active Not Available Not Available No t Available fluoxetine 10 mg capsule Take 1 capsule every day by oral route for 30 days. 2024 active Not Available Not Available Not Avai lable hydroxyzin e HCl 25 mg tablet TAKE 1 TABLET BY MOUTH 4 TIMES DAILY NEEDED FOR ITCHING OR ANXIETY 10/11 completed pt is not taking 10/11/24 Not Available Not Available Not Available mupirocin 2 % topical ointment APPLY OINTMENT TOPICALL Y THREE TIMES DAILY 10/11 completed pt is not taking 10/11/24 Not Available Not Available Not Available furosemide 20 mg tablet TAKE 1 TABLET BY MOUTH ONCE DAILY 10/11 completed pt is not taking 10/11/24 Not Available Not Available Not Available gabapentin 100 mg capsule Take 1 capsule 3 times a day by oral route as needed for 30 days. 2024 active Not Available Not Available Not Avai lable amoxicilli n 875 mg-potassi um clavulanat e 125 mg tablet TAKE 1 TABLET BY MOUTH TWICE DAILY FOR ALLERGIC RHINITIS 10/11 completed pt is not taking 10/11/24 Not Available Not Available Not Available duloxetine 30 mg capsule,de layed release Take 1 capsule every day by oral route for 30 days. 10/11 completed Not Available Not Available Not Available pregabalin 200 mg capsule TAKE 1 CAPSULE BY MOUTH TWICE DAILY 10/11 completed pt is not taking 10/11/24 Not Available Not Available Not Available cholecalci ferol (vitamin D3) 1,250 mcg (50,000 unit) capsule TAKE 1 CAPSULE BY MOUTH ONCE A WEEK active pt takes this OTC 10/11/24 Not Available Not Available Not Available Vitals Date Recorded Body weight Body mass index (BMI) Body height Respiratory rate Body temperature Oxygen saturation Oxygen saturation in Arterial blood by Pulse oximetry Heart rate Systolic blood pressure Diastolic blood pressure Provider Name and Address Organization Details Last Updated DateTime 5 83601.9 1 g 26 kg/m2 182.88 cm 18 /min 98.2 [degF] 99 % 99 % 100 /min 124 mm[Hg] 88 mm[Hg] GEORGIE Calderon [place] - [facility] 10:22:14 Social History Question Answer Notes LastModified by Organizat ion Details LastModified Time Tobacco Smoking Status Never Smoker GEORGIE Calderon null, [place] - [facility] 10/11/2024 10:12:47 What Is Your Level Of Alcohol Consumption? None Former 10/11/24 Information not available 10/11/2024 In The 14 Days Before Symptom Onset, Have You Had Close Contact With A Laboratory-confir med COVID-19 While That Case Was Ill? No Information not available 10/11/2024 In The 14 Days Before Symptom Onset, Have You Had Close Contact With A Person Who Is Under Investigation For COVID-19 While That Person Was Ill? No Information not available 10/11/2024 Have You Been To An Area Known To Be High Risk For COVID-19? No Information not available 10/11/2024 What Was The Date Of Your Most Recent Tobacco Screening? 10/11/2024 Information not available 10/11/2024 Are You Passively Exposed To Smoke? No Information no t available 10/11/2024 Do You Use Any Illicit Or Recreational Drugs? No Information not available 10/11/2024 Has Tobacco Cessation Counseling Been Provided? Yes Information not available 10/11/2024 On What Date Was Tobacco Cessation Counseling Provided? 10/11/2024 Information not available 10/11/2024 Do You Or Have You Ever Used Any Other Forms Of Tobacco Or Nicotine? No Information not available 10/11/2024 Sex: Male Functional Status None recorded. Mental Status None recorded. Family History Relationship Description Onset Age of this Age Resolved Age Notes LastModified by Organization Details LastModified Time Mother Hypertensive disorder both sides of family as well [email or web address] Not available 10/11/2024 10:12:16 Unspecified Relation Hypercholest erolemia both sides of family [email or web address] Not available 10/11/2024 10:11:59 Notes:10/11/24 Medical History Condition Response Coronary Artery Disease N Other Y High Blood Pressure N Atrial Fibrillation N Kidney or Bladder Problems N Thyroid Problems N GI Problems Y Depression Y COPD N Blood Clots N Have you had a mammogram in the last yea r? N Skin Problems N Anemia N Heart Attack ([place]) N Anxiety Disorder Y Diabetes N Muscle, Joint, or Bone Problems N Seizures/Epilepsy N Have you had a colonoscopy in the last 1 0 years? N Acid Reflux (GERD) Y Cancer N Stroke N Asthma N Allergies N Have you had a PSA blood test in the las t year? N High Cholesterol N Hepatitis Y Liver Disease Y Headaches N Heart Failure N Osteoporosis N Past Encounters Encounter ID Performer Location Encounter Start Date Encounter Closed Date Diagnosis/Indication Diagnosis SNOMED-CT Code Diagnosis ICD10 Code Diagnosis Note [id number] MD Juan Carlos Cevallos [address] IM [address] [place] [address] 10/11/2024 09:43:43 10/17/2024 19:09:22 Overweight 483072584 E66.3 -Discussed resources like nutritioni st or dietitian, declined at this time.-Redu ce drinks with high sugar like soda or juice, increase water intake. Decrease alcohol consumptio ns.-Increa se fresh fruits and vegetables to diet.-Eat only when you are hungry.-Re duce portions and limit snacks.-Re commend continued lifestyle modificati ons & exercise >150mins/w k. Mixed anxi ety and depressive disorder [id number] F41.8 PHQ 9: 08/19GAD 7: 02/11Histor y of alcohol abuse disorder.P ossible bipolar disorder.W as admitted to [facility] [facility] for acute alcoholic psychosis, where he stayed for 2 weeks on July 2024.Has been on fluoxetine in the past. Currently, on duloxetine inconsiste ntly.Will continue current medication , discussed consistent use for better outcome.Wi ll send referral to psych and counseling History of alcohol abuse 929256658 F10.10 Drank a bottle of vodka daily for 3-4 years, working as a insurance service representative at the time.Relap sed in July4Curren tly attending 3-4 meetings a week, 69 days sober.Warm handoff handout provided. History of liver disease [id number] Z87.19 -History of alcohol abuse-CT abdomen 11/12/23: Hepatomega ly with diffuse hepatic steatosis. Splenomega ly and small varices consistent with portal hypertensi on. Edema and small volume ascites.- CT abdomen 09/30/2024 No acute findings.R eferral for GI.Contact patient once results are received.C alculate child Mtz score, adjust medication accordingl y. Colostomy present 932721 009 Z93.3 Cleaned and dry, currently doing well Positive s creening for depression on PHQ-9 (Patient Health Questionnaire 9) [id number] 77363 Z13.31 Impacted c erumen in right ear 1251049671 272519 H61.21 Cleaned with irrigation , doing better. Mild erythema post irrigation . Neuropathy 134197221 G62 .9 Presents with scar tissue from surgical colectomy. Continue Gabapentin as needed. Health Concerns Section Related Observation LastModified by Organization Detai ls LastModified Time None Recorded Concern Status LastModified by Organization Details LastModified Time None Recorded Advance Directives Directive None Recorded Payers Encounter Date Sequence Insurance Name Policy Number Policy [place] Covered Member ID Acotsa Member ID Guarantor Name 10/11/2024 2 *SELF PAY* Sa jagruti Shukla Bibi 10/11/2024 1 [facility] (MEDICAID REPLACEMENT - HMO) [id number] Isaiah Mtz [id number] Isaiah Mtz Notes Date Note Type Note Provider Name and Address Organization Details Recorded Time 10/11/2024 text/html Isaiah Mtz is a 29 year old male with a PMH of anxiety. He is new to my care and presents to the office to establish care. Reports the following concerns:1. Abdominal PainPatient reports in October of last year diagnosed with cirrhosis, jaundice and diverticulitis.After three surgical attempts was able to undergo a colectomy.Currently, not following with GI.Went to the ED on 09/30/24 where he was found to have hyperkalemia but unremarkable abdominal CT, normal liver enzymes.Abdominal pain improved when takes his medication. 2. History of alcohol abuse, AnxietyDrank a bottle of vodka daily for 3-4 years, working as a insurance service representative at the time.After being sober, relapsed in July 2024 due to anxiety after a bad break-up.Was admitted to [facility] for acute alcoholic psychosis, where he stayed for 2 weeks.Has been on fluoxetine in the past. Currently, on duloxetine inconsistently.Tamara jones attending 3-4 meetings a week, 69 days sober.Has changed his diet, no longer working as a insurance service representative.Attempted to move to [place] for sober living however due to panic attacks and withdrawal symptoms from discontinuing antidepressants which are not home.Living at home, has good family support.Will start EGD classes on October 2024. David Lucio MD Attn: Accounting[address] [place], [address], [facility] 10/17/2024 19:09:20
--- OUTSIDE RECORDS SUMMARY | 2024-10-18 17:10 | XMS_ITS | Clinical Summary ---
Author Organization [facility] Address [address] [place] [address] Care Team Providers Care Bilingual Sales Assistant Name Role Phone Carmina Loja MD Primary Care Provid er Allergies Active Allergy Reactions Criticality Noted Date [...] in packet Take 1 packet by mouth social media developer before breakfast 30 packet 11/12/19 24 Active [...] CDT): - contacted wound care center at [facility]- appointment scheduled for Thursday12/21/2023 - continue wet-to-dry [...] thick brown output Severe protein-calorie malnutrition (CMS/HCC) Assessment & Plan (12/25/2023 8:16 PM CDT): [...] incision, CT shows abdominal wall hematoma, CTM 4/8 removed rebekah from the upper aspect of [...] urgent OR today for abdominal closure 12/03 SENIOR CONSTRUCTION ESTIMATOR for pain, will transition to PO when tolerating diet 12/04-12/06 clamp trials/schedule with [facility] and local wound care 12/08 last LONA removed, plan for discharge tomorrow if midline wound remains intact Sigmoid diverticulitis 11/05/202312/24 Assessment & Plan (12/09/2023 1:11 PM CDT): First diagnosed at end of September, was uncomplicated then so treated with abx (Augmentin). Admitted to [facility] 10/24-11/01 for hepatitis with ascites. CT scan 10/25 noted microperforation.Treated with IV zoysn. Re-presented to [place] ED on 11/04 11/04: admitted to [facility] primary 11/11: underwent EGD, after which developed [...] Previously tolerating PO, +stoma output 12/01 OR (Lauripfer) abdominal closure; ALMA, 2nd LONA drain placed [...] total until 12/15, clamp both LONA drains 4/15 POD5, midline incision with red wound bed, [...] necrosis of small bowel (CMS/HCC) 11/05/2023 12/25/2023 Encounters Date Type Department Care Team Description 10/01/2024 1:02 AM PORTAINER OPERATOR - 10/01/2024 4:24 AM PORTAINER OPERATOR Emergency [facility] Emergency Department [address] [place] [address] Andrés Wilde MD Abdominal pain (Primary Dx); Hyperkalemia Discharge Disposition: Discharge to home or self care from Last 3 Months Immunizations Immunization Administration Dates Next Due DTaP 03/16/2002, 9,1997,10/10,1997 DTaP, Unspecified 03/16/2002, 9,1997,10/10,1997 Hep B / HiB 03/16/1998,1997,1997 Hep B Vaccine 12/10/2023,(Deferred: Other - new order given),12/10/2023(Deferred: Other),12/01/2023(Deferred: Not available from veneer marker),11/12/2023 Hep B, Adolescent or Pediatric 03/16/1998,1996,1997 Hep B, Unspecified 03/16/1998,1997, 997 HiB 05/03/1999, 9,1997,12/07,1997,1997,1997 ,1997 Hib (HbOC) 05/03/1999, 8,1997,07/21 IPV 03/16/2002, 8,1997,07/21 Influenza, Unspecified 06/01/2023(Deferred: Leigh ent Refused) MMR 03/16/2002,06/01/1998 Meningococcal ACWY, Unspecified 02/01/2009 Meningococcal MCV4P (Menactra) 05/25/2015,2008 Meningococcal Polysaccharide (Menomune) 02/01/2009 Td, adsorbed 05/28/2021 Tdap 02/01/2009 Varicella 05/25/2015,05/03/1999 Surgical History Surgery Date Site/Laterality Comments UPPER GASTROINTESTINAL ENDOSCOPY Medical History Medical History Date Comments Diverticulitis Hepatitis Sigmoid diverticulitis 11/05/2023 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 Abdominal wall hematoma 11/30/2023 Sinus tachycardia 12/04/2023 VRE (vancomycin resistant enterococcus) culture positive 12/06/2023 Diuretic-induced hypokalemia 11/28/2023 Discharge planning issues 11/27/2023 Family History Medical History Relation Name Comments Hypertension Other Family history of Hypertension; Relation Name Status Comments Other Social History Tobacco Use Types Packs/Day Years Used Date Smoking Tobacco: Former Cigarettes Smokeless Tobacco: Never Tobacco Cessation:Counseling Given: Not Answered Alcohol Use Standard Drinks/Week Comments Not Currently 0 (1 standard drink = 0.6 oz pure alcohol) pt did drink daily until october 23 [facility] [employer] Answer Date Recorded In the past 12 months has [employer], gas, oil, or water [employer] threatened to shut off services in your [...] often do you attend chur ch or amish services? Never 11/06/2023 Do you belong to any clubs o r organizations such as denominational groups, unions, fraternal or athletic groups, or [...] No 11/06/2023 Housing Stability Vital Sign Answer George e Recorded In the last 12 months, [...] place to sleep or slept in a fpc (including now)? No 11/06/2023 Personal Safety Answer Date Recorded Have you ever been in or are you currently in a harmful physical or emotional relationship or is someone making you feel afraid or unsafe? Denies 09/30/2024 Sex and Gender Information Value Date Recorded Sex Assigned at Not on file Legal Sex Male 5:33 PM PORTAINER OPERATOR Gender Identity Not on file Sexual Orientation Not on file Obstetrics History Last Filed Vital Signs Vital Sign Reading Time Taken Comments Blood Pressure 129/84 09/30/2024 7:05 PM PORTAINER OPERATOR Pulse 85 09/30/2024 7:05 PM PORTAINER OPERATOR Temperature 36.2 C (97.2 F) 09/30/2024 7:04 PM PORTAINER OPERATOR Respiratory Rate 18 09/30/2024 7:04 PM PORTAINER OPERATOR Oxygen Saturation 100% 09/30/2024 7:05 PM PORTAINER OPERATOR Inhaled Oxygen Concentration - - Weight 83.9 kg (185 lb) 09/30/2024 7:04 PM PORTAINER OPERATOR Height 182.9 cm (6') 09/30/2024 7:04 PM PORTAINER OPERATOR Body Mass Index 25.09 09/30/2024 7:04 PM PORTAINER OPERATOR Plan of Treatment Health Maintenance Due Date Last Done Comments Regular Well Visit/Exam 18-64 2015 Depression Screening 11/04/2024 11/05/2023 Influenza Vaccine (#1) 2025 Postp oned from 04/24/2024 (Patient declined, but will receive in the future) Pneumococcal vaccine <65 (1 of 2 - PCV) 04/25/2025 Postponed from 2016 (Patient declined, but will receive in the future) DTaP/Tdap/Td Vaccine (8 - Td or Tdap) 05/28/2031 05/28/2021, 02/01/2009, 03/16/2002, Additional history exists Varicella Vaccines Completed 05/25/2015, 05/03/1999 Hepatitis C Screening Completed 11/05/2023 , 10/25/2023, 10/20/2023 HPV Vaccines Aged Out No longer eligi ble based on patient's age to complete this topic Procedures Procedure Name Priority Date/Time Associated Diagnosis Comments CT ABDOMEN PELVIS W CONTRAST ED 10/01/2024 1:34 AM PORTAINER OPERATOR URINALYSIS AND REFLEX TO MICROSCOPIC AND CULTURE STAT 09/30/2024 9:06 PM PORTAINER OPERATOR EGFR STAT 09/30/2024 8:26 PM PORTAINER OPERATOR DIFFERENTIAL AUTO STAT 09/30/2024 8:2 6 PM PORTAINER OPERATOR LIPASE STAT 09/30/2024 8:26 PM PORTAINER OPERATOR COMPREHENSIVE METABOLIC PANEL STAT 09/30/2024 8:26 PM PORTAINER OPERATOR CBC WITH AUTO DIFFERENTIAL STAT 09/30/2024 8:26 PM PORTAINER OPERATOR HEPATITIS C RNA, QUANTITATIVE, PCR Routine 11/05/2023 8:57 PM CDT from Last 3 Months or Most Recently Relevant to Health Maintenance Results * CT Abdomen Pelvis W Contrast (10/01/2024 1:34 AM PORTAINER OPERATOR) Anatomical Region Laterality Modality Body N/A Computed Tomogra phy 10/01/2024 1:37 AM PORTAINER OPERATOR Narrative 10/01/2024 1:42 AM PORTAINER OPERATOR EXAM DESCRIPTION: CT ABDOMEN PELVIS W CONTRAST [...] by Pilar Jimenez M.D. SN: Report ID: [id number] Reading Location: [id number] Procedure Note Pilar Jimenez MD - 10/01/2024 [...] Pilar Jimenez M.D. SN: SN Report ID: [id number] Reading Location: [id number] us Andrés Wilde MD IMG CT PROCEDURES Final Resul t * Urinalysis reflex to microscopic and culture Urine (09/30/2024 9:06 PM PORTAINER OPERATOR) Color, ur Straw Yellow Clarity, ur Clear [...] tendency for uric acid stone formation. Source: [facility] [place] Current Interpretive Data was last revised on [...] for microscopic UA and culture not met. [facility] ([place]) Urine 09/30/2024 9:06 PM PORTAINER OPERATOR 09/30/2024 9:10 PM PORTAINER OPERATOR us Andrés Wilde MD LAB MICROBIOLOGY - GENERAL OR DERABLES Final Result [facility] ([place]) 1 [facility] Department [place] [address] * eGFR (09/30/2024 8:26 PM PORTAINER OPERATOR) eGFR >90 >=60 mL/min/1. 73 m2 Comment: [...] last reviewed 2021. Blood 09/30/2024 8:26 PM PORTAINER OPERATOR 09/30/2024 8:28 PM PORTAINER OPERATOR us Andrés Wilde MD LAB BLOOD ORDERABLES Final Re sult [facility] ([place]) [address] [facility] Department [place] [address] * (ABNORMAL) Differential, auto (09/30/2024 8:26 PM PORTAINER OPERATOR) Neutrophil abs 5.0 1.5 - 6.5 K/cumm [...] was last revised on 2017. Blood 09/30/2024 8:26 PM PORTAINER OPERATOR 09/30/2024 8:28 PM PORTAINER OPERATOR us Andrés Wilde MD LAB BLOOD ORDERABLES Final Re sult [facility] ([place]) 1 [facility] Department [place] [address] * CBC with auto differential (09/30/2024 8:26 PM PORTAINER OPERATOR) WBC 9.4 3.8 - 9.9 K/cumm Hgb 16.1 13.0 - 17.5 g/dL [facility] ([place]) Hct 47.6 38.9 - 50.3 % [facility] ([place]) Plt 296 150 - 400 K/cumm [facility] ([place]) MPV 9.8 9.1 - 12.3 fL [facility] ([place]) RBC 5.47 4.30 - 5.80 M/cumm [facility] ([place]) MCV 87.0 81.3 - 96.4 fL [facility] ([place]) MCH 29.4 27.1 - 33.3 pg [facility] ([place]) MCHC 33.8 32.3 - 35.7 g/dL [facility] ([place]) RDW CV 11.9 11.1 - 14.9 % [facility] ([place]) RDW SD 38.2 35.7 - 48.1 fL [facility] ([place]) NRBC abs 0.00 0.00 - 0.01 K/cumm [facility] ([place]) Blood (Blood, Venous) 09/30/2024 8:26 PM PORTAINER OPERATOR 09/30/2024 8:28 PM PORTAINER OPERATOR Andrés Wilde MD LAB BLOOD ORDERABLES Final Re sult Performing Organization Address City/[facility]/ZIP Co de Phone Number [facility] ([place]) 1 [facility] [place] [address] * Lipase (09/30/2024 8:26 PM PORTAINER OPERATOR) Pathologist [facility] Lipase 72 10 - 99 Units/L Blood (Blood, Venous) 09/30/2024 8:26 PM PORTAINER OPERATOR 09/30/2024 8:28 PM PORTAINER OPERATOR us Andrés Wilde MD LAB BLOOD ORDERABLES Final Re sult Performing Organization Address [facility]/ZIP Co de Phone Number [facility] ([place]) 1 [facility] [place] [address] * (ABNORMAL) Comprehensive metabolic panel (09/30/2024 8:26 PM PORTAINER OPERATOR) Sodium 133(L) 135 - 145 mmol/L Potassium, pl 5.3(H) 3.3 - 4.9 mmol/L [facility] ([place]) Comment:Moderately Hemolyzed Specimen. Results may [...] classification and Diagnosis of Diabetes Diabetes Care 2021; 46: S19-S40. Current interpretive data was last [...] Specimen AST 46 10 - 50 Units/L [facility] ([place]) Comment: Hemolysis present. Results may be affected. Moderately Hemolyzed Specimen Blood 09/30/2024 8:26 PM PORTAINER OPERATOR 09/30/2024 8:28 PM PORTAINER OPERATOR us Andrés Wilde MD LAB BLOOD ORDERABLES Final Re sult [facility] ([place]) 1 [facility] Department [place] [address] * Hepatitis C (HCV) RNA PCR, quantitative Blood (11/05/2023 8:57 PM CDT) [facility] HCV RNA result Not Detected [facility] Comment: The quantifiable range of this assay is 15 IU/mL to 100,000,000 IU/mL (1.18 log IU/mL to 8.00 log IU/mL). Testing was performed by the ROBERTO 6800 HCV Test ([employer] Testing performed at [facility] Current Interpretive Data was last revised on 2021 Blood 11/05/2023 8:57 PM CDT 11/05/2023 9:38 PM CDT Katerina Rashid MD LAB MICROBIOLOGY - GENERAL ORDERABLES Final Result [facility] Department [place] [address] [facility] from Last 3 Months or Most Recently Relevant to Health Maintenance Insurance [facility] [address] [place] [id number] [facility] Advance Directives For more information, please contact: [phone] * Full Code (Latest Code Status on File) Date Activated Date Inactivated Comments 12/02/2023 12:20 PM 12/10/2023 6:24 PM * Full Code Date Activated Date Inactivated Comments 11/12/2023 9:15 AM 12/02/2023 12:20 PM * Full Code Date Activated Date Inactivated Comments 11/05/2023 4:23 PM 11/12/2023 9:15 AM * Full Code Date Activated Date Inactivated Comments 10/25/2023 7:37 AM 11/02/2023 9:19 PM Care Teams Bilingual Sales Assistant Relationship Specialty Start Date End Date Carmina Loja MD [address] [place] [address] [place] [address] PCP - General Family Medicine 10/01/24
--- OUTSIDE RECORDS SUMMARY | 2024-10-18 17:10 | XMS_ITS | Clinical Summary ---
Author Organization [facility] Address [address] [place] [address] Phone Care Team Providers Care Planning Technician Name Role Phone Provider, None Primary Care Provider Unavailabl e Allergies No known active allergies Medications traMADol (ULTRAM) 50 MG TabletIndication s:Acute esophagitis Take 1 Tablet by mouth every 6 hours as needed for Moderate or more severe pain. 12 Tablet 1 Active Additional Information Patient not taking.Reported on 05/28/2021 ondansetron (ZOFRAN-ODT) 4 MG TABLET DISPERSIBLE Take 1 Tablet by mouth every 8 hours as needed for Nausea - 2nd line (vomiting). 10 Tablet 2 Active Additional Information Patient not taking.Reported on 10/17/2023 ibuprofen (MOTRIN) 600 MG Tablet Take 1 Tablet by mouth every 6 hours as needed for Moderate or more severe pain. 28 Tablet 2 Active Active Problems Problem Noted Date Diagnosed Date Acute esophagitis 05/21/2021 Hiatal hernia 05/21/2021 Acute esophageal obstruction 05/19/2021 Vapes nicotine containing substance Immunizations Immunization Administration Dates Next Due DTAP VACCINE, UNSPECIFIED FORMULATION ,05/03/1999,1997,10/10,1997 Hepatitis B Vaccine,unspecif ied Formulation 03/16/1998,1997,1997 Hib (HbOC) 05/03/1999, 8,1997,07/21 Hib Vaccine,unspecified Formulation 04/24,1997,1997,07/21 Inactivated Polio Vaccine 03/16/2002,,1997,07/21 MMR Vaccine 03/16/2002,06/01/1998 Meningococcal Vaccine 05/25/2015 Meningococcal Vaccine, Unspe cified Formulation 02/01/2009 TD VACCINE 05/28/2021 TDAP Vaccine 02/01/2009 Varicella Vaccine Live 05/25/2015,05/03/1999 Family History Medical History Relation Name Comments No Known Problems Father No Known Problems Mother No Known Problems Sister Relation Name Status Comments Father Alive Mother Alive Sister Alive Social History Tobacco Use Types Packs/Day Years Used Date Smoking Tobacco: Former Cigarettes 1 - 05/28/2019 Smokeless Tobacco: Never Alcohol Use Standard Drinks/Week Comments Yes 0 (1 standard drink = 0.6 oz pur e alcohol) socially PHQ-2 Answer Date Recorded Total Score - Questions 1-9 0 12/2020 Sexually Active Control Partners Comments Yes Sex and Gender Information Value Date Recorded Sex Assigned at Not on file Legal Sex Male 10:25 PM CDT Gender Identity Not on file Sexual Orientation Not on file Last Filed Vital Signs Vital Sign Reading Time Taken Comments Blood Pressure 112/74 10/17/2023 4:31 PM REQUISITION APPROVER Pulse 112 10/17/2023 4:31 PM REQUISITION APPROVER Temperature 36.4 C (97.5 F) 10/17/2023 4:31 PM REQUISITION APPROVER Respiratory Rate 15 10/17/2023 4:31 PM REQUISITION APPROVER Oxygen Saturation 96% 10/17/2023 4:31 PM REQUISITION APPROVER Inhaled Oxygen Concentration - - Weight 86.2 kg (190 lb) 02/08/2022 11:11 PM CDT Height 172.7 cm (5' 8 ) 02/08/2022 11:11 PM CDT Body Mass Index 28.89 02/08/2022 11:11 PM CDT Plan of Treatment Health Maintenance Due Date Last Done Comments Hepatitis C Virus (HCV) Screening 1997 Influenza Immunization (#1) 2024 SARS-COV-2 Immunization ( season) 2024 DTaP/Tdap/Td Immunization (8 - Td or Tdap) 05/28/2031 05/28/2021, 02/01/2009, 03/16/2002, Additional history exists Respiratory Syncytial Virus (RSV) Immunization (Adult) (1 - 1-dose 75+ series) 2072 Meningococcal Immunization (ACWY) Completed 05/25/2015, 02/01/2009 Hepatitis B Immunization Completed 024, 03/16/1998, 1997, Additional history exists Pneumococcal Immunization Combined Aged Out No longer eligible based on patient's age to complete this topic Rotavirus Immunization Aged Out No lo nger eligible based on patient's age to complete this topic Advance Directives * Full Code (Latest Code Status on File) Date Activated Date Inactivated Comments 05/20/2021 2:46 AM 05/21/2021 4:30 PM CPR-Full David atment: FULL ARREST: Attempt Resuscitation/CPR wit intubation and mechanical ventilation. PRE-ARREST: Use entire range of life support measures to stabilize the patient. Care Teams Planning Technician Relationship Specialty Start Date End Date Provider, None [place] PCP - General 02/08/22
== END 2024-10-18 17:00 | disposition home or self-care (01) ==
PROVIDERS: Emergency Provider Emergency Medicine
DX: R10.11 Right upper quadrant pain (principal); Z20.822 Contact with and (suspected) exposure to COVID-19; Z93.3 Colostomy status
CPT/HCPCS: 36415; 71045; 74177; 80053; 81003; 83690; 85025; 87637; 96361; 96374; 96375; 99284; J1171; J2405; J7030; Q9967